=== PATIENT | female | born 1995 | race Caucasian/White ===

== ENCOUNTER 2018-05-19 00:55 | Outpatient (CLI) | payer OTHER | END 2018-05-19 00:56 | disposition EMS.NT | LOC: EMS 00:55 | PROVIDERS: ATTEND Surgery | DX: R20.2 Paresthesia of skin (principal) ==

== ENCOUNTER 2018-05-19 01:36 | Emergency (ER) | payer OTHER ==
[2018-05-19 01:45] VITALS: BP 118/74
--- NOTE | 2018-05-19 01:45 | ED Physician Documentation ---
PD HPI DYSPNEA - Stated complaint Stated Complaint: ALLERGIC REACTION/SOA - History obtained from History obtained from: Patient - History of Present Illness Timing - onset: How many hours ago (1.5), Today Timing - onset during: Light activity (she put on some lipstick and had abrupt onset of swelling/burning/discomfort of the lips. Says some feeling of swelling inner lips too. No swelling of tongue nor throat. 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 denies: Cough GI: denies: Nausea, Vomiting Neurologic: denies: Near syncope, Altered mental status, Headache PD PAST MEDICAL HISTORY - Past Medical History Cardiovascular: None Respiratory: None Neuro: None Endocrine/Autoimmune: None - Present Medications Home Medications: Ambulatory Orders Medication Instructions Recorded Confirmed Cetirizine [ZyrTEC] 10 mg PO DAILY #15 tablet 05/19/18 Dexamethasone [Decadron] 4 mg PO DAILY #5 tablet 05/19/18 diphenhydrAMINE [Benadryl] 25 mg PO Q4-6H PRN #20 capsule 05/19/18 - Allergies Allergies/Adverse Reactions: Allergies Allergy/AdvReac Type Severity Reaction Status Date / Time olive oil Allergy Hives Verified 05/19/18 01:45 - Living Situation Living Situation: reports: With spouse/s.o. Living Arrangement: reports: At home - Social History Does the pt drink ETOH?: No Does the pt have substance abuse?: No - Family History Family history: reports: Non contributory PD ED PE NORMAL - Vitals Vital signs reviewed: Yes - General General: Alert and oriented X 3, No acute distress, Well developed/nourished - HEENT HEENT: Ears normal, Moist mucous membranes, Pharynx benign, Other (lips with uniform swelling and are pinker colored than usual. No blistering. ) - Neck Neck: Supple, no meningeal sign, No adenopathy - Cardiac Cardiac: RRR, No murmur - Respiratory Respiratory: Clear bilaterally - Derm Derm: Normal color, Warm and dry - Neuro Neuro: Alert and oriented X 3, No motor deficit, Normal speech Results - Vitals Vitals: Vital Signs - 24 hr 05/19/18 01:43 Temperature 36.8 C Heart Rate 71 Respiratory 17 Rate Blood Pressure 118/74 O2 Saturation 99 Oxygen O2 Source Room air Departure - Departure Disposition: 01 Home, Self Care Clinical Impression: Contact allergic reaction Condition: Stable Record reviewed to determine appropriate education?: Yes Instructions: ED Allergic Reaction Local Other Prescriptions: Cetirizine [ZyrTEC] 10 mg PO DAILY #15 tablet Dexamethasone [Decadron] 4 mg PO DAILY #5 tablet diphenhydrAMINE [Benadryl] 25 mg PO Q4-6H PRN #20 capsule PRN Reason: Allergy Symptoms Comments: Drink lots of fluids. Benadryl every 6 hours if needed for itchiness and swelling. Use Decadron steroid for the next several days until the swelling and symptoms seem completely resolved. Cetirizine long-acting antihistamine daily for a week or so. Recheck if not fully improved over the next day or 2 and return sooner if worsening symptoms. Add Tylenol if needed for headache and pains. Discharge Date/Time: 05/19/18 02:13
[2018-05-19] MEDS ORDERED: ONDANSETRON ODT 4 MG TABLET TL STA (01:55)
[2018-05-19] MEDS ORDERED: diphenhydrAMINE 25 MG CAPSULE PO STA (01:55)
[2018-05-19] MEDS ORDERED: DEXAMETHASONE 10 MG/ML VIAL PO STA (01:55)
[2018-05-19] MEDS ORDERED: NAPROXEN 250 MG TABLET PO STA (01:55)
== END 2018-05-19 02:13 | disposition home or self-care (01) ==
LOC: ED 01:36
DX: L23.2 Allergic contact dermatitis due to cosmetics (principal); R22.9 Localized swelling, mass and lump, unspecified
CPT/HCPCS: 99283; A9270; Q0162

== ENCOUNTER 2018-05-22 17:59 | Emergency (ER) | payer OTHER ==
[2018-05-22] MEDS ORDERED: LOPERAMIDE 2 MG CAPSULE PO STA (18:11)
[2018-05-22] MEDS ORDERED: KETOROLAC 15 MG/ML VIAL IVP STA (18:11)
[2018-05-22] MEDS ORDERED: SODIUM CHLORIDE 0.9% 1,000 ML IV ONE (18:11)
[2018-05-22] MEDS ORDERED: ONDANSETRON 4 MG/2 ML VIAL IVP STA (18:11)
--- NOTE | 2018-05-22 18:13 | ED Physician Documentation ---
PD HPI ABD PAIN - Stated complaint Stated Complaint: N/V/D/PASSED OUT - Chief complaint Chief Complaint: Abd Pain - History obtained from History obtained from: Patient - History of Present Illness Timing - onset: Today (Fairly abruptly today she developed central and lower abdominal pain as well as vomiting and diarrhea. She got up and felt dizzy and fell down without full syncope. She was exposed to somebody with a GI illness a few days ago. No fevers. She doubts the possibility of as she is in a monogamous homosexual relationship.) Review of Systems Constitutional: reports: Chills, Sweats. denies: Fever Cardiac: denies: Chest pain / pressure, Palpitations Respiratory: denies: Dyspnea, Cough GI: reports: Abdominal Pain, Nausea, Vomiting, Diarrhea. denies: Constipation, Hematemesis, Bloody / black stool : reports: LMP (05/13). denies: Now EGA Musculoskeletal: denies: Neck pain, Back pain PD PAST MEDICAL HISTORY - Past Medical History Cardiovascular: None Respiratory: None Neuro: None Endocrine/Autoimmune: None - Past Surgical History Past Surgical History: No - Present Medications Home Medications: Ambulatory Orders Medication Instructions Recorded Confirmed Cetirizine [ZyrTEC] 10 mg PO DAILY #15 tablet 05/19/18 Dexamethasone [Decadron] 4 mg PO DAILY #5 tablet 05/19/18 diphenhydrAMINE [Benadryl] 25 mg PO Q4-6H PRN #20 capsule 05/19/18 Ondansetron Odt [Zofran] 4 mg TL Q6H PRN #10 tablet 05/22/18 - Allergies Allergies/Adverse Reactions: Allergies Allergy/AdvReac Type Severity Reaction Status Date / Time olive oil Allergy Hives Verified 05/22/18 18:06 - Social History Does the pt smoke?: No Smoking Status: Never smoker Does the pt drink ETOH?: No Does the pt have substance abuse?: No - POLST Patient has POLST: No PD ED PE NORMAL - Vitals Vital signs reviewed: Yes - General General: Alert and oriented X 3, No acute distress - HEENT HEENT: Pharynx benign - Neck Neck: Supple, no meningeal sign, No bony TTP - Cardiac Cardiac: RRR, No murmur - Respiratory Respiratory: No respiratory distress, Clear bilaterally - Abdomen Abdomen: Normal bowel sounds, Soft, Non tender - Back Back: No CVA TTP, No spinal TTP - Derm Derm: Normal color, Warm and dry - Extremities Extremities: No edema, No calf tenderness / cord - Neuro Neuro: Alert and oriented X 3 - Psych Psych: Normal mood, Normal affect Results - Vitals Vitals: Vital Signs - 24 hr 05/22/18 18:00 Temperature 36 C L Heart Rate 74 Respiratory 16 Rate Blood Pressure 122/74 O2 Saturation 97 Oxygen O2 Source Room air - Labs Labs: Laboratory Tests 05/22/18 05/22/18 05/22/18 18:48 18:48 19:15 WBC 7.7 RBC 4.97 Hgb 12.5 Hct 39.5 MCV 79.5 L MCH 25.2 L MCHC 31.7 L RDW 15.7 H Plt Count 344 MPV 7.6 L Neut # (Auto) 5.0 Lymph # (Auto) 1.8 [place] # (Auto) 0.6 Eos # (Auto) 0.2 Baso # (Auto) 0.1 Absolute Nucleated RBC 0.01 Nucleated RBC % 0.1 Sodium 136 Potassium 3.8 Chloride 102 Carbon Dioxide 26 Anion Gap 8.0 BUN 15 Creatinine 0.7 Estimated GFR (MDRD) 107 Glucose 102 H Calcium 9.4 Total Bilirubin 0.4 AST 22 ALT 20 Alkaline Phosphatase 67 Total Protein 8.0 Albumin 4.7 Globulin 3.3 Albumin/Globulin Ratio 1.4 Lipase 40 Urine Color YELLOW Urine Clarity CLEAR Urine pH 7.0 Ur Specific [place] 1.015 Urine Protein NEGATIVE Urine Glucose (UA) NEGATIVE Urine Ketones NEGATIVE Urine Occult Blood NEGATIVE Urine Nitrite NEGATIVE Urine Bilirubin NEGATIVE Urine Urobilinogen 0.2 (NORMAL) Ur Leukocyte Esterase SMALL H Urine RBC 0-5 Urine WBC 6-10 H Ur Squamous Epith Cells FEW Squamous Urine Bacteria Rare Ur Microscopic Review INDICATED Urine Culture Comments INDICATED Urine HCG, Qual NEGATIVE PD MEDICAL DECISION MAKING - ED course ED course: This is a 22-year-old woman who was exposed to what sounds like gastroenteritis by an acquaintance few days ago but now has vomiting, diarrhea, lightheadedness, and abdominal pain with a benign examination and benign vitals. She was administered IV fluids, Zofran and Imodium with good relief of those symptoms but did have some vertigo which was treated with meclizine. She remained otherwise asymptomatic and passed an oral challenge. She was given appendicitis precautions but I suspect this is very unlikely at this juncture. Departure - Departure Disposition: 01 Home, Self Care Clinical Impression: Gastroenteritis Condition: Good Record reviewed to determine appropriate education?: Yes Instructions: ED Gastroenteritis Viral Prescriptions: Ondansetron Odt [Zofran] 4 mg TL Q6H PRN #10 tablet PRN Reason: Nausea / Vomiting Comments: Wash your hands well. Return if you develop a fever, right lower quadrant pain as discussed where I showed you. Also return if not better in 12-18 hours. You can use imodium available [id number] as needed for diarrhea.
[2018-05-22 19:08] LABS: BASOPHILS # (AUTO) 0.1 10^3/uL (0.0-0.1); BASOPHILS % (AUTO) 0.8 %; EOSINOPHILS # (AUTO) 0.2 10^3/uL (0.0-0.7); EOSINOPHILS % (AUTO) 2.3 %; HGB - HEMOGLOBIN 12.5 g/dL (12.0-16.0); LYMPHOCYTES # (AUTO) 1.8 10^3/uL (1.5-3.5); LYMPHOCYTES % (AUTO) 23.9 %; MEAN CORPUSCULAR HEMOGLOBIN 25.2 pg (27.0-31.0); MEAN CORPUSCULAR HGB CONC 31.7 g/dL (32.0-36.0); MEAN CORPUSCULAR VOLUME 79.5 fL (81.0-99.0); MEAN PLATELET VOLUME 7.6 fL (7.9-10.8); MONOCYTES # (AUTO) 0.6 10^3/uL (0.0-1.0); PLT - PLATELET COUNT 344 10^3/uL (130-450); RED BLOOD COUNT 4.97 10^6/uL (4.20-5.40); RED CELL DISTRIBUTION WIDTH 15.7 % (12.0-15.0); WHITE BLOOD COUNT 7.7 x10^3/uL (4.8-10.8)
[2018-05-22 19:16] LABS: ALBUMIN 4.7 g/dL (3.2-5.5); ALBUMIN/GLOBULIN RATIO 1.4 (1.0-2.2); BILIRUBIN,TOTAL 0.4 mg/dL (0.2-1.0); CALCIUM 9.4 mg/dL (8.5-10.3); CREATININE 0.7 mg/dL (0.4-1.0)
[2018-05-22 19:26] LABS: BILIRUBIN,URINE NEGATIVE (NEGATIVE); GLUCOSE, URINE (UA) NEGATIVE (NEGATIVE); KETONES,URINE (UA) NEGATIVE (NEGATIVE); LEUKOCYTE ESTERASE, URINE SMALL (NEGATIVE); NITRITE,URINE NEGATIVE (NEGATIVE); OCCULT BLOOD,URINE NEGATIVE (NEGATIVE); PROTEIN,URINE NEGATIVE (NEGATIVE); UROBILINOGEN,URINE 0.2 (NORMAL) E.U./dL (NORMAL)
[2018-05-22 19:28] LABS: CLARITY,URINE CLEAR (CLEAR); HCG UR QUAL NEGATIVE
[2018-05-22] MEDS ORDERED: MECLIZINE 12.5 MG TABLET PO STA (19:37)
[2018-05-22 19:41] LABS: BACTERIA,URINE Rare /HPF (None Seen); RBC,URINE 0-5 /HPF (0-5); SQUAMOUS EPITHELIAL CELL,UR FEW Squamous (<= Few)
[2018-05-22] MEDS ORDERED: ONDANSETRON ODT 4 MG Prepack 2 TL STA (20:15)
[2018-05-22 20:22] VITALS: BP 116/71
== END 2018-05-22 20:24 | disposition home or self-care (01) ==
LOC: ED 17:59
DX: K52.9 Noninfective gastroenteritis and colitis, unspecified (principal)
CPT/HCPCS: 36415; 80053; 81001; 81025; 83690; 85025; 87086; 96361; 96374; 96375; 99283; A9270; 81003

== ENCOUNTER 2018-10-17 17:06 | Emergency (ER) | payer OTHER ==
--- NOTE | 2018-10-17 18:26 | ED Physician Documentation ---
PD HPI CHEST PAIN - Stated complaint Stated Complaint: SOA/CHEST PRESSURE - Chief complaint Chief Complaint: Resp - History obtained from History obtained from: Patient - History of Present Illness Timing - onset: How many days ago (2) Timing - duration: Days (2) Timing - details: Gradual onset Pain level now: 6 Quality: Sharp Location: Substernal Worsened by: Other Associated symptoms: No: Shortness of air, Diaphoresis, Nausea, Vomiting Recently seen: Not recently seen - Additional information Additional information: This is a 22-year-old who presents with her significant other and friend complaints that she is been sick for couple days she feels short of breath and it hurts to breathe just underneath her sternum. Her throat feels swollen she has not been exposed to strep. She rates her pain at a 6 out of 10. She is had subjective fevers with chills. Denies stuffy nose. She is bringing up a little bit of phlegm when she coughs but she does not look at it. She has been feeling like her heart has skipped a few beats. She is tried DayQuil Tylenol and cough drops without relief of her symptoms. Denies history of asthma but is a smoker. She is not currently employed. Review of Systems Constitutional: reports: Fever (Subjective), Chills Ears: denies: Ear pain Nose: denies: Congestion Throat: reports: Sore throat Cardiac: reports: Chest pain / pressure. denies: Palpitations Respiratory: reports: Dyspnea, Cough. denies: Wheezing GI: denies: Nausea, Vomiting : reports: Other (Denies ) PD PAST MEDICAL HISTORY - Past Medical History Cardiovascular: None Respiratory: None Neuro: None Endocrine/Autoimmune: None GI: None REST ROOM ATTENDANT: None : None HEENT: None Psych: None Musculoskeletal: None Derm: None - Past Surgical History Past Surgical History: No - Present Medications Home Medications: Ambulatory Orders Medication Instructions Recorded Confirmed RX: Ibuprofen 600 mg PO TID PRN #30 tablet 10/17/18 guaiFENesin/CODEINE [Robitussin AC] 5 ml PO Q6H PRN #120 ml 10/17/18 - Allergies Allergies/Adverse Reactions: Allergies Allergy/AdvReac Type Severity Reaction Status Date / Time olive oil Allergy Hives Verified 10/17/18 17:13 - Social History Does the pt smoke?: No Smoking Status: Never smoker Does the pt drink ETOH?: No ETOH Use: Beer Does the pt have substance abuse?: No - Immunizations Immunizations are current?: Yes - POLST Patient has POLST: No PD ED PE NORMAL - Vitals Vital signs reviewed: Yes - General General: Alert and oriented X 3, No acute distress, Well developed/nourished - HEENT HEENT: Atraumatic, PERRL, EOMI, Ears normal, Moist mucous membranes, Other (There is erythema in the tonsillar pillars bilaterally no exudate.) - Neck Neck: Supple, no meningeal sign, No adenopathy - Cardiac Cardiac: RRR, No murmur - Respiratory Respiratory: No respiratory distress, Clear bilaterally - Abdomen Abdomen: Soft - Neuro Neuro: Alert and oriented X 3 - Psych Psych: Normal mood, Normal affect Results - Vitals Vitals: Vital Signs - 24 hr 10/17/18 10/17/18 17:09 19:34 Temperature 37 C 36.7 C Heart Rate 82 68 Respiratory 16 15 Rate Blood Pressure 127/77 114/74 O2 Saturation 98 99 Oxygen O2 Source Room air - Labs Labs: Laboratory Tests 10/17/18 18:34 Group A Strep Rapid Negative PD MEDICAL DECISION MAKING - ED course Complexity details: re-evaluated patient, d/w patient, d/w family ED course: Strep screen is negative. The patient's chest x-ray is clear. Results were discussed with her. She will be treated symptomatically with Robitussin with codeine cough medication and ibuprofen. Follow-up with her primary care provider if her symptoms are not improving. Departure - Departure Disposition: 01 Home, Self Care Clinical Impression: Bronchitis Condition: Good Instructions: ED Upper Resp Infec No Abx Tx Follow-Up: David Pool ARNP [Primary Care Provider] - Prescriptions: guaiFENesin/CODEINE [Robitussin AC] 5 ml PO Q6H PRN #120 ml PRN Reason: Cough RX: Ibuprofen 600 mg PO TID PRN #30 tablet PRN Reason: Pain Comments: Take the Motrin every 8 hours with food as needed for pain. Salt water gargles may help the throat. Robitussin with codeine if needed for coughing and to help you sleep. Do not drive or operate machinery if you are using the codeine. Follow-up with your primary care provider if your symptoms are not improving ov er another 5 to 7 days or if things are worsening with increasing shortness of breath, increasing pain, vomiting or other problems arise. Discharge Date/Time: 10/17/18 19:53
--- NOTE | 2018-10-17 19:05 | XRAY Report ---
Reason: cough Procedure Date: 10/17/2018 Accession Number: [id number] / [id number] Procedure: XR - Chest 2 View X-Ray CPT Code: 05677 FULL RESULT: EXAM: CHEST RADIOGRAPHY EXAM DATE: 10/17/2018 06:40 PM. CLINICAL HISTORY: Cough. COMPARISON: None. TECHNIQUE: 2 views. FINDINGS: Lungs/Pleura: No focal opacities evident. No pleural effusion. No pneumothorax. Normal volumes. Mediastinum: Heart and mediastinal contours are normal. Other: None. IMPRESSION: No acute cardiopulmonary abnormality. RADIA
[2018-10-17 19:35] VITALS: BP 114/74
== END 2018-10-17 19:53 | disposition home or self-care (01) ==
LOC: ED 17:06
DX: J40 Bronchitis, not specified as acute or chronic (principal)
CPT/HCPCS: 71046; 87070; 87430; 99283

== ENCOUNTER 2018-11-22 10:40 | Emergency (ER) | payer OTHER ==
[2018-11-22] MEDS ORDERED: AMOX/CLAV 875 MG/125 MG TABLET PO STA (12:24)
[2018-11-22] MEDS ORDERED: HYDROcod/ACETAM 5/325 MG TABLET PO STA (12:24)
--- NOTE | 2018-11-22 12:26 | ED Physician Documentation ---
PD HPI HEENT - Stated complaint Stated Complaint: HEADACHE/EAR PX - Chief complaint Chief Complaint: Heent - History obtained from History obtained from: Patient - History of Present Illness Timing - onset: Yesterday (Cough and cold for a week with a fever a few days ago now gone. Severe right ear pain that is worsening since yesterday with muffled hearing but no drainage.) Review of Systems Constitutional: denies: Fever, Chills Ears: reports: Loss of hearing, Ear pain. denies: Drainage/discharge Nose: reports: Rhinorrhea / runny nose. denies: Sinus pressure / pain Throat: denies: Sore throat PD PAST MEDICAL HISTORY - Past Medical History Cardiovascular: None Respiratory: None Neuro: None Endocrine/Autoimmune: None GI: None COMPUTER HARDWARE ENGINEER: None : None HEENT: None Psych: None Musculoskeletal: None Derm: None - Past Surgical History Past Surgical History: No - Present Medications Home Medications: Ambulatory Orders Medication Instructions Recorded Confirmed Amox/Clav 875/125 [Augmentin] 1 each PO Q12H #20 tablet 11/22/18 Hydrocodone/Acetaminophen 1 - 2 each PO Q6H PRN #14 tablet 11/22/18 [Hydrocodon-Acetaminophen 5-325] - Allergies Allergies/Adverse Reactions: Allergies Allergy/AdvReac Type Severity Reaction Status Date / Time olive oil Allergy Hives Verified 11/22/18 10:48 - Social History Does the pt smoke?: No Smoking Status: Never smoker Does the pt drink ETOH?: No Does the pt have substance abuse?: No - Immunizations Immunizations are current?: Yes - POLST Patient has POLST: No PD ED PE NORMAL - Vitals Vital signs reviewed: Yes - General General: Alert and oriented X 3, Other (uncomfortable) - HEENT HEENT: PERRL, EOMI, Other (Left TM normal, severe right otitis media, bulging enough to suggest impending rupture.) - Neck Neck: Supple, no meningeal sign, No bony TTP - Neuro Neuro: Alert and oriented X 3, pad extractor tender 2-12 intact - Psych Psych: Normal mood, Normal affect Results - Vitals Vitals: Vital Signs - 24 hr 11/22/18 10:45 Temperature 36.1 C L Heart Rate 59 L Respiratory 16 Rate Blood Pressure 103/66 O2 Saturation 97 Oxygen O2 Source Room air Departure - Departure Disposition: 01 Home, Self Care Clinical Impression: ROM (right otitis media) Qualifiers: Otitis media type: suppurative Chronicity: acute Recurrence: non-recurrent Spontaneous tympanic membrane rupture: without spontaneous rupture Qualified Code(s): H66.001 - Acute suppurative otitis media without spontaneous rupture of ear drum, right ear Condition: Good Record reviewed to determine appropriate education?: Yes Health Concerns: Right ear pain Plan of Treatment: Severe right otitis media, possibility of impending rupture. Will place on antibiotics and painkillers. Follow-up with your doctor in 1 week. Return for new worsening symptoms. Do not drink or drive while taking narcotic pain medication. Note that many narcotic pain relievers also contain Tylenol/acetaminophen. Please ensure that your total dose of acetaminophen from all sources does not exceed 3 g (3000 mg) per day. You may get constipated while on this medication. Take a stool softener such as Colace twice a day while you are on it. Also add an [id number]-eqjblld laxative such as senna or MiraLAX on any day that you do not have a bowel movement. If you received a narcotic pain medication or sedative while in the emergency department, do not drive for the next 24 hours. Care Goals: improve pain, hearing Assessment: as above Instructions: ED Otitis Media Acute Adult Prescriptions: Amox/Clav 875/125 [Augmentin] 1 each PO Q12H #20 tablet Hydrocodone/Acetaminophen [Hydrocodon-Acetaminophen 5-325] 1 - 2 each PO Q6H PRN #14 tablet PRN Reason: pain
[2018-11-22 12:32] VITALS: BP 102/68
== END 2018-11-22 12:31 | disposition home or self-care (01) ==
LOC: ED 10:40
DX: H66.001 Acute suppurative otitis media without spontaneous rupture of ear drum, right ear (principal)
CPT/HCPCS: 99283; A9270

== ENCOUNTER 2019-01-16 05:52 | Day surgery (SDC) | payer OTHER ==
[2019-01-16] MEDS ORDERED: DEXAMETHASONE 4 MG/ML VIAL IVP ONE (05:53)
[2019-01-16] MEDS ORDERED: NEOSTIGMINE 0.5 MG/1 ML 10 ML MDV IVP ONE (05:53)
[2019-01-16] MEDS ORDERED: PROPOFOL 200 MG/20 ML VIAL IVP ONE (05:53)
[2019-01-16] MEDS ORDERED: MIDAZOLAM 2 MG/2 ML VIAL IVP ONE (05:53)
[2019-01-16] MEDS ORDERED: GLYCOPYRROLATE 1 MG/5 ML VIAL IVP ONE (05:53)
[2019-01-16] MEDS ORDERED: KETOROLAC 30 MG/ML VIAL IVP ONE (05:53)
[2019-01-16 06:28] LABS: HCG UR QUAL NEGATIVE
[2019-01-16] MEDS ORDERED: LACTATED RINGERS 1,000 ML IV ONE ×2 (06:33→09:47)
--- NOTE | 2019-01-16 07:14 | ANESTHESIA ---
Pre-Anesthesia VS, & Labs - Diagnosis chronic pelvic pain - Procedure diagnostic laparoscopy Vital Signs: Temp Pulse Resp BP Pulse Ox 36 C L 73 20 110/73 98 01/16/19 06:15 01/16/19 06:15 01/16/19 06:15 01/16/19 06:15 01/16/19 06:15 Height 5 ft 6.14 in Weight (kg) 65.3 kg Body Mass Index 23.1 - NPO >8 hours - Is Patient ?: No - Lab Results Lab results reviewed: Yes Home Medications and Allergies Home Medications: Ambulatory Orders Naproxen [Naprosyn] 250 mg PO Q8H 01/06/19 Quetiapine Fumarate [Seroquel] 50 mg PO 01/06/19 Naproxen [Naprosyn] 250 mg PO Q8H 01/06/19 Quetiapine Fumarate [Seroquel] 50 mg PO 01/06/19 Allergies/Adverse Reactions: Allergies Allergy/AdvReac Type Severity Reaction Status Date / Time olive oil Allergy Hives Verified 01/06/19 15:35 Anes History & Medical History - Anesthetic History Anesthesia Complications: reports: No previous complications (wisdom teeth extraction, D&C) Family history of Anesthesia Complications: Denies Family history of Malignant Hyperthermia: Denies - Medical History Cardiovascular: reports: None Pulmonary: reports: None Gastrointestinal: reports: None Urinary: reports: None Neuro: reports: None Musculoskeletal: reports: None Endocrine/Autoimmune: reports: None Blood Disorders: reports: Anemia Skin: reports: None Smoking Status: Never smoker - Surgical History Gynecologic: Dilation and currettage Exam General: Alert Dental: WNL Mouth Openin Fingerbreadth Neck Mobility: Normal Mallampati classification: II Thyromental Distance: 4-6 cm Respiratory: Lungs clear, Normal breath sounds Cardiovascular: Regular rate Neurological: Normal gait, Normal speech Mental/Cognitive Status: Alert/Oriented X3, Normal for patient Cognitive Status: Within normal limits Plan Anesthesia Type: General Consent for Procedure(s) Verified and Reviewed: Yes Code Status: Attempt Resuscitation ASA classification: 2-Mild systemic disease Is this case an emergency?: No
[2019-01-16] MEDS ORDERED: BUPIVACAINE 0.5% PF 10 ML VIAL ONE (07:23)
[2019-01-16] MEDS ORDERED: SILVER NITRATE APPLICATOR TOP ONE (07:24)
[2019-01-16] MEDS ORDERED: METHYLENE BLUE 0.5% 50 MG/10 ML AMPULE ONE (07:24)
[2019-01-16] MEDS ORDERED: VASOPRESSIN 20 UNIT/ML VIAL ONE ×2 (07:25→07:39)
[2019-01-16] MEDS ORDERED: ACETAMINOPHEN 1,000 MG/100 ML 100 ML IV ONE (07:39)
[2019-01-16] MEDS: LEVONORGESTREL 20 MCG/24H IUD IY ONE ×3 (08:23→08:37)
[2019-01-16] MEDS: LIDOCAINE-MPF 1% 30 ML VIAL ONE ×2 (08:35→08:36)
[2019-01-16] MEDS ORDERED: HYDROcod/ACETAM 10 MG/325 MG TABLET PO PRN (08:57)
--- NOTE | 2019-01-16 09:00 | OPERATIVE REPORT ---
Operative Report - General Procedure Date: 01/16/19 Planned Procedure: Diagnostic laparoscopy Placement of Mirena intrauterine system Pre-Op Diagnosis: Chronic pelvic pain Procedure Performed: Diagnostic laparoscopy Fulguration of endometriosis Placement of Mirena intrauterine system Post Op Diagnosis: Endometriosis - Procedure Note Primary Surgeon: Rob Anesthesia Provider: Delroy Anesthesia Technique: General ET tube IV Fluids (mL): 450 Estimated Blood Loss (mL): 5 Indications: Chronic pelvic pain Findings: Exam under anesthesia The uterus was of normal size, shape, and consistency. The adnexa were benign. Exam under anesthesia The uterus was anteverted, and of normal size and shape. The tubes and ovaries were normal. There were powder mohan in the anterior and posterior cul-de-sacs and in the left ovarian fossa. The right ovarian fossa was clear. The appendix and the liver edge and gallbladder appeared normal. Complications: None - Other Other Information/Narrative: The patient was taken to the operating room, where general endotracheal anesthesia was administered without difficulty. She was then positioned in the low dorsal lithotomy position with her lower extremities in [place] stirrups. Vagina, perineum, and abdomen were then prepped and draped in a sterile fashion. Procedure Time-Out was then performed. An exam under anesthesia was performed. A sterile bivalve speculum was then inserted into the vagina. The anterior lip of the cervix was grasped with a single-tooth tenaculum, then the cervix was grasped with a Hulka tenaculum. The speculum was then removed, and attention was turned to the laparoscopy. 0.5% Marcaine was injected infraumbilically, then a 7-mm horizontal skin incision made. A Verres needle was then inserted through the anterior layers of the abdominal wall with saline drop test suggesting intraperitoneal placement. Carbon dioxide gas insufflation was then performed with appropriate opening pressures noted. Once 2 L of gas was instilled, a 0-degree, 5 mm laparoscope was inserted into a 5 mm trocar and passed through the anterior layers of the abdominal wall using Optiview technique. The abdomen was visualized, then a right lower quadrant port was placed, first instilling local anesthetic, then placing the ports under direct visualization with the laparoscope. The L hook was used to coagulate the endometriotic implants which were previously noted. The abdomen was then irrigated and desufflated to the extent possible. The ports were removed under direct visualization and the port sites closed with 4-0 Monocryl subcutaneous sutures and covered with Dermabond. Attention was returned to the vagina where the Hulka tenaculum was removed and a paracervical block with 20 cc of 1% lidocaine was given. A Mirena intrauterine system was placed without difficulty and the strings shortened to 3 cm. The patient was then awakened and taken to the recovery room in stable condition.
[2019-01-16] MEDS: fentaNYL 100 MCG/2 ML VIAL ONE ×2 (09:28→09:33)
[2019-01-16] MEDS ORDERED: ONDANSETRON 4 MG/2 ML VIAL ONE (09:46)
[2019-01-16 11:05] VITALS: BP 111/75
[2019-01-16] MEDS ORDERED: HYDROcod/ACETAM 10 MG/325 MG TABLET ONE (11:16)
== END 2019-01-16 05:53 | disposition home or self-care (01) ==
LOC: SDS 05:52
PROVIDERS: ATTEND Obstetrics & Gynecology
PROC: 0U5F4ZZ Destruction of Cul-de-sac, Percutaneous Endoscopic Approach (ICD-10-PCS; 2019-01-16)
PROC: 0UH97HZ Insertion of Contraceptive Device into Uterus, Via Natural or Artificial Opening (ICD-10-PCS; principal; 2019-01-16 07:30)
DX: N80.3 Endometriosis of pelvic peritoneum (principal); Z30.430 Encounter for insertion of intrauterine contraceptive device; E07.9 Disorder of thyroid, unspecified; F17.290 Nicotine dependence, other tobacco product, uncomplicated; Z79.1 Long term (current) use of non-steroidal anti-inflammatories (NSAID); Z62.810 Personal history of physical and sexual abuse in childhood
CPT/HCPCS: 58300; 58662; 81025; A9270; J0131; J7120; J7298

== ENCOUNTER 2019-02-04 22:44 | Outpatient (CLI) | payer OTHER | END 2019-02-04 22:45 | disposition EMS.NT | LOC: EMS 22:44 | PROVIDERS: ATTEND Surgery | DX: R45.851 Suicidal ideations (principal) ==

== ENCOUNTER 2019-02-04 23:37 | Emergency (ER) | payer OTHER ==
[2019-02-04 23:49] VITALS: BP 119/74
--- NOTE | 2019-02-05 00:34 | ED Physician Documentation ---
PD HPI MHE - Stated complaint Stated Complaint: SI - Chief complaint Chief Complaint: MHE - History obtained from History obtained from: Patient - History of Present Illness Primary symptom: Self harm - cut, Depression Timing - onset: Today () Contributing factors: Family Recently seen: Not recently seen - Additional information Additional information: had verbal argument with alen, which led patient to feeling worthless and depressed. She self-inflicted cutting atwood to her right FA using a clothing pin; she has h/o cutting behavior, but hadn't done this in nearly a year. She then felt guilty and more upset when she realized she had resorted to cutting herself; she says she knows of several other means of coping with these situations and feels guilt and is upset with herself for not using a better, more productive coping skill aside from cutting. She says she briefly had suicidal thoughts earlier tonight but without specific plan and she says she feels no serious intent with these thoughts. She says she has many reasons she would not act on suicidal thoughts, such as having friends and family that she loves and love her and she would not want them to deal with the emotional consequences of her committing suicide. Review of Systems Skin: reports: Abrasion (s) Musculoskeletal: reports: Extremity pain (mild burning left forearm at site of abrasions) Neurologic: denies: Focal weakness, Numbness Psychiatric: reports: Depressed. denies: Suicidal, Homicidal, Hallucinations, Delusions PD PAST MEDICAL HISTORY - Past Medical History Cardiovascular: None Respiratory: None Neuro: None Endocrine/Autoimmune: None GI: None DONATION SPECIALIST: None : None HEENT: None Psych: Depression, Anxiety Musculoskeletal: None Derm: None - Past Surgical History Past Surgical History: No /DONATION SPECIALIST: Dilation and currettage - Present Medications Home Medications: Ambulatory Orders Medication Instructions Recorded Confirmed Naproxen [Naprosyn] 250 mg PO Q8H 01/06/19 01/16/19 Quetiapine Fumarate [Seroquel] 50 mg PO 01/06/19 - Allergies Allergies/Adverse Reactions: Allergies Allergy/AdvReac Type Severity Reaction Status Date / Time olive oil Allergy Hives Verified 01/06/19 15:35 - Social History Does the pt smoke?: No Smoking Status: Never smoker Does the pt drink ETOH?: No Does the pt have substance abuse?: No - Immunizations Immunizations are current?: Yes - POLST Patient has POLST: No PD ED PE NORMAL - Vitals Vital signs reviewed: Yes - General General: Alert and oriented X 3, No acute distress, Well developed/nourished - Cardiac Cardiac: RRR, No murmur - Respiratory Respiratory: No respiratory distress, Clear bilaterally - Extremities Extremities: No edema - Neuro Neuro: No motor deficit, No sensory deficit - Psych Psych: Normal mood, Normal affect PD ED PE EXPANDED - Extremities Extremities: Other (multiple linear superficial abrasions to right forearm, ventral surface) Results - Vitals Vitals: Oxygen O2 Source Room air PD MEDICAL DECISION MAKING - ED course Complexity details: considered differential, d/w patient ED course: patient is able to contract for safety and is comfortable going home. She declines telepsych, she declines social work consult in AM. Departure - Departure Disposition: 01 Home, Self Care Clinical Impression: Depression, Self-cutting of wrist Condition: Good Instructions: ED Abrasion, ED Depression Follow-Up: David Pool ARNP [Primary Care Provider] - Discharge Date/Time: 02/05/19 01:09
[2019-02-05] MEDS ORDERED: BACITRACIN ZINC OINT 14 GM TOP STA (01:00)
[2019-02-05] MEDS ORDERED: BACITRACIN ZINC OINT 14 GM TOP ONE (01:12)
== END 2019-02-05 01:09 | disposition home or self-care (01) ==
LOC: EDUNIT# → ED 23:37
DX: F32.9 Major depressive disorder, single episode, unspecified (principal); R45.851 Suicidal ideations; S50.811A Abrasion of right forearm, initial encounter; X78.9XXA Intentional self-harm by unspecified sharp object, initial encounter
CPT/HCPCS: 99283; 99284; A9270

== ENCOUNTER 2019-02-11 01:59 | Emergency (ER) | payer OTHER ==
[2019-02-11 02:22] LABS: MUDS CUTOFF CONCENTRATIONS CUTOFF CONC BELOW:
[2019-02-11 02:25] LABS: BILIRUBIN,URINE NEGATIVE (NEGATIVE); GLUCOSE, URINE (UA) NEGATIVE (NEGATIVE); KETONES,URINE (UA) NEGATIVE (NEGATIVE); LEUKOCYTE ESTERASE, URINE TRACE (NEGATIVE); NITRITE,URINE NEGATIVE (NEGATIVE); OCCULT BLOOD,URINE MODERATE (NEGATIVE); PROTEIN,URINE NEGATIVE (NEGATIVE); UROBILINOGEN,URINE 0.2 (NORMAL) E.U./dL (NORMAL)
[2019-02-11 02:26] LABS: CLARITY,URINE CLEAR (CLEAR); HCG UR QUAL NEGATIVE
[2019-02-11 02:28] LABS: BASOPHILS # (AUTO) 0.1 10^3/uL (0.0-0.1); BASOPHILS % (AUTO) 0.6 %; EOSINOPHILS # (AUTO) 0.3 10^3/uL (0.0-0.7); EOSINOPHILS % (AUTO) 3.6 %; HGB - HEMOGLOBIN 12.1 g/dL (12.0-16.0); LYMPHOCYTES # (AUTO) 2.7 10^3/uL (1.5-3.5); LYMPHOCYTES % (AUTO) 32.6 %; MEAN CORPUSCULAR HEMOGLOBIN 26.7 pg (27.0-31.0); MEAN CORPUSCULAR HGB CONC 32.1 g/dL (32.0-36.0); MEAN CORPUSCULAR VOLUME 83.2 fL (81.0-99.0); MEAN PLATELET VOLUME 9.4 fL (7.9-10.8); MONOCYTES # (AUTO) 0.7 10^3/uL (0.0-1.0); MONOCYTES % (AUTO) 8.2 %; NEUTROPHILS # (AUTO) 4.5 10^3/uL (1.5-6.6); NEUTROPHILS % (AUTO) 54.6 %; PLT - PLATELET COUNT 307 10^3/uL (130-450); RED BLOOD COUNT 4.53 10^6/uL (4.20-5.40); RED CELL DISTRIBUTION WIDTH 14.4 % (12.0-15.0); WHITE BLOOD COUNT 8.3 x10^3/uL (4.8-10.8)
[2019-02-11 02:32] LABS: AMPHETAMINE SCREEN,URINE NEGATIVE (NEGATIVE); BENZODIAZEPINES SCREEN, URINE NEGATIVE (NEGATIVE); COCAINE SCREEN URINE NEGATIVE (NEGATIVE); METHADONE SCREEN, URINE NEGATIVE (NEGATIVE); METHAMPHETAMINES SCREEN, URINE NEGATIVE (NEGATIVE); OPIATE SCREEN, URINE NEGATIVE (NEGATIVE); TRICYCLIC ANTIDEPRESSANT,URINE POSITIVE (NEGATIVE)
[2019-02-11 02:33] LABS: OXYCODONE SCREEN, URINE NEGATIVE (NEGATIVE); PROPOXYPHENE SCREEN, URINE NEGATIVE (NEGATIVE)
[2019-02-11 02:39] LABS: BACTERIA,URINE Few /HPF (None Seen); RBC,URINE 0-5 /HPF (0-5); SQUAMOUS EPITHELIAL CELL,UR FEW Squamous (<= Few)
[2019-02-11 02:39] LABS: ACETAMINOPHEN < 10 ug/mL (10-30); ALBUMIN 4.4 g/dL (3.2-5.5); ALBUMIN/GLOBULIN RATIO 1.4 (1.0-2.2); ALKALINE PHOSPHATASE 57 IU/L (42-121); ALT ALANINE AMINOTRANSFERASE < 10 IU/L (10-60); AST ASPARTATE AMINOTRANSFERASE 18 IU/L (10-42); BILIRUBIN,TOTAL 0.4 mg/dL (0.2-1.0); BUN - BLOOD UREA NITROGEN 15 mg/dL (6-20); CALCIUM 9.2 mg/dL (8.5-10.3); CARBON DIOXIDE - CO2 23 mmol/L (21-32); CHLORIDE 105 mmol/L (101-111); CREATININE 0.8 mg/dL (0.4-1.0); GFR - MDRD 91 (>89); GLUCOSE 103 mg/dL (70-100); LIPASE 37 U/L (22-51); SALICYLATE < 6.0 mg/dL; SODIUM 137 mmol/L (135-145); TOTAL PROTEIN 7.6 g/dL (6.7-8.2)
--- NOTE | 2019-02-11 04:11 | ED Physician Documentation ---
PD HPI MHE - Stated complaint Stated Complaint: SI - Chief complaint Chief Complaint: MHE - History obtained from History obtained from: Patient, Family - History of Present Illness Primary symptom: Suicidal ideation, Depression Timing - onset: How many weeks ago (1) Pain level max: 0 Pain level now: 0 Contributing factors: Family (states her mother told her she is worthless and will never get better) Similar symptoms before: Diagnosis (depression, SI) Recently seen: Emergency Dept (last week for self harm.) - Additional information Additional information: Patient states that she sees Dr. Pereyra in [place] for psychiatry. She has an appointment on Sunday. She states that she was started on Seroquel and lithium 1 month ago. States that she had been on this as a teenager and it worked well. She states that she feels like she is better than a month ago but is still having thoughts. She is wondering if she needs her medications adjusted sooner. Review of Systems Ten Systems: 10 systems reviewed and negative Constitutional: denies: Fever, Chills Nose: denies: Rhinorrhea / runny nose, Congestion Throat: denies: Sore throat Cardiac: denies: Chest pain / pressure Respiratory: denies: Cough GI: denies: Abdominal Pain, Nausea, Vomiting : denies: Dysuria, Frequency, Hesitancy, Now EGA Skin: denies: Rash Musculoskeletal: denies: Neck pain, Back pain Neurologic: denies: Headache Psychiatric: reports: Depressed, Suicidal (no plan). denies: Hallucinations PD PAST MEDICAL HISTORY - Past Medical History Cardiovascular: None Respiratory: None Neuro: None Endocrine/Autoimmune: None GI: None REGIONAL ADMINISTRATIVE ASSISTANT: None : None HEENT: None Psych: Depression, Anxiety Musculoskeletal: None Derm: None - Past Surgical History Past Surgical History: No /REGIONAL ADMINISTRATIVE ASSISTANT: Dilation and currettage - Present Medications Home Medications: Ambulatory Orders Medication Instructions Recorded Confirmed Naproxen [Naprosyn] 250 mg PO Q8H PRN 01/06/19 01/16/19 Quetiapine Fumarate [Seroquel] 50 mg PO 01/06/19 Force 300 mg PO DAILY 02/11/19 02/11/19 - Allergies Allergies/Adverse Reactions: Allergies Allergy/AdvReac Type Severity Reaction Status Date / Time olive oil Allergy Hives Verified 02/11/19 02:08 - Social History Does the pt smoke?: No Smoking Status: Never smoker Does the pt drink ETOH?: No Does the pt have substance abuse?: No - Immunizations Immunizations are current?: Yes - POLST Patient has POLST: No PD ED PE NORMAL - Vitals Vital signs reviewed: Yes - General General: Alert and oriented X 3, No acute distress, Well developed/nourished - HEENT HEENT: PERRL, Moist mucous membranes - Neck Neck: Supple, no meningeal sign - Cardiac Cardiac: RRR - Respiratory Respiratory: No respiratory distress, Clear bilaterally - Abdomen Abdomen: Soft, Non tender, Non distended - Derm Derm: Warm and dry - Extremities Extremities: No edema - Neuro Neuro: Alert and oriented X 3 - Psych Psych: Normal mood, Normal affect Results - Vitals Vitals: Vital Signs - 24 hr 02/11/19 02:03 Temperature 36.6 C Heart Rate 85 Respiratory 16 Rate Blood Pressure 105/69 O2 Saturation 99 Oxygen O2 Source Room air - Labs Labs: Laboratory Tests 02/11/19 02/11/19 02/11/19 02:10 02:10 02:18 WBC 8.3 RBC 4.53 Hgb 12.1 Hct 37.7 MCV 83.2 MCH 26.7 L MCHC 32.1 RDW 14.4 Plt Count 307 MPV 9.4 Neut # (Auto) 4.5 Lymph # (Auto) 2.7 Pike # (Auto) 0.7 Eos # (Auto) 0.3 Baso # (Auto) 0.1 Absolute Nucleated RBC 0.00 Nucleated RBC % 0.0 Sodium Potassium Chloride Carbon Dioxide Anion Gap BUN Creatinine Estimated GFR (MDRD) Glucose Calcium Total Bilirubin AST ALT Alkaline Phosphatase Total Protein Albumin Globulin Albumin/Globulin Ratio Lipase TSH Urine Color YELLOW Urine Clarity CLEAR Urine pH 7.0 Ur Specific [place] 1.010 Urine Protein NEGATIVE Urine Glucose (UA) NEGATIVE Urine Ketones NEGATIVE Urine Occult Blood MODERATE H Urine Nitrite NEGATIVE Urine Bilirubin NEGATIVE Urine Urobilinogen 0.2 (NORMAL) Ur Leukocyte Esterase TRACE H Urine RBC 0-5 Urine WBC 0-3 Ur Squamous Epith Cells FEW Squamous Urine Bacteria Few Ur Microscopic Review INDICATED Urine Culture Comments INDICATED Urine HCG, Qual NEGATIVE Last Dose Date Last Dose Time Salicylates Urine Opiates Screen NEGATIVE Ur Oxycodone Screen NEGATIVE Urine Methadone Screen NEGATIVE Ur Propoxyphene Screen NEGATIVE Acetaminophen Ur Barbiturates Screen NEGATIVE Ur Tricyclics Screen POSITIVE H Ur Phencyclidine Scrn NEGATIVE Ur Amphetamine Screen NEGATIVE U Methamphetamines Scrn NEGATIVE U Benzodiazepines Scrn NEGATIVE Force Urine Cocaine Screen NEGATIVE U Cannabinoids Screen NEGATIVE Ethyl Alcohol 02/11/19 02/11/19 02/11/19 02:18 02:18 03:30 WBC RBC Hgb Hct MCV MCH MCHC RDW Plt Count MPV Neut # (Auto) Lymph # (Auto) Pike # (Auto) Eos # (Auto) Baso # (Auto) Absolute Nucleated RBC Nucleated RBC % Sodium 137 Potassium 4.0 Chloride 105 Carbon Dioxide 23 Anion Gap 9.0 BUN 15 Creatinine 0.8 Estimated GFR (MDRD) 91 Glucose 103 H Calcium 9.2 Total Bilirubin 0.4 AST 18 ALT < 10 L Alkaline Phosphatase 57 Total Protein 7.6 Albumin 4.4 Globulin 3.2 Albumin/Globulin Ratio 1.4 Lipase 37 TSH 3.85 Urine Color Urine Clarity Urine pH Ur Specific [place] Urine Protein Urine Glucose (UA) Urine Ketones Urine Occult Blood Urine Nitrite Urine Bilirubin Urine Urobilinogen Ur Leukocyte Esterase Urine RBC Urine WBC Ur Squamous Epith Cells Urine Bacteria Ur Microscopic Review Urine Culture Comments Urine HCG, Qual Last Dose Date UNKNOWN Last Dose Time UNKNOWN Salicylates < 6.0 Urine Opiates Screen Ur Oxycodone Screen Urine Methadone Screen Ur Propoxyphene Screen Acetaminophen < 10 L Ur Barbiturates Screen Ur Tricyclics Screen Ur Phencyclidine Scrn Ur Amphetamine Screen U Methamphetamines Scrn U Benzodiazepines Scrn Force 0.56 Urine Cocaine Screen U Cannabinoids Screen Ethyl Alcohol < 5.0 PD MEDICAL DECISION MAKING - ED course Complexity details: reviewed results, re-evaluated patient, considered differential, d/w patient, d/w family ED course: 23-year-old female presents to the emergency department with depression and vague suicidal ideation. No current plan. Tele-psychiatry consult was placed. She is medically clear for psychiatric care. Social work consult also placed. Will await further consultation. Patient signed out to oncoming emergency department physician. She will likely need outpatient counseling in addition to her current psychiatrist. This document was made in part using voice recognition software. While efforts are made to proofread this document, sound alike and grammatical errors may occur. Departure - Departure Clinical Impression: Depression Qualifiers: Depression Type: unspecified Qualified Code(s): F32.9 - Major depressive disorder, single episode, unspecified Condition: Stable
[2019-02-11 04:16] LABS: LITHIUM 0.56 mmol/L
[2019-02-11 07:26] VITALS: BP 101/68
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
--- NOTE | 2019-02-11 11:22 | ED Physician Documentation ---
ED Addendum - Addendum Addendum: 02/11/19 11:21 Patient was evaluated by tele-psych who felt she was safe for discharge and had a safety plan in place with her partner. Social work also talked with them. She has a psychiatric appointment today at 1 as a acute follow-up. She is comfortable heading home.
== END 2019-02-11 11:27 | disposition home or self-care (01) ==
LOC: ED 01:59
DX: F32.9 Major depressive disorder, single episode, unspecified (principal)
CPT/HCPCS: 36415; 80178; 80320; 80329; 81001; 81025; 83690; 87086; 99283; G0427; Q3014; 80053; 80306; 80307; 81003; 84443; 85025

== ENCOUNTER 2019-04-11 02:38 | Outpatient (CLI) | payer OTHER | END 2019-04-11 02:39 | disposition critical access hospital (66) | LOC: EMS 02:38 | PROVIDERS: ATTEND Surgery | DX: R55 Syncope and collapse (principal); R10.10 Upper abdominal pain, unspecified | CPT/HCPCS: A0425; A0429 ==

== ENCOUNTER 2019-04-11 02:57 | Day surgery (SDC) | payer OTHER ==
--- NOTE | 2019-04-11 03:15 | ED Physician Documentation ---
History of Present Illness - Stated complaint Stated Complaint: CONCERNED ABOUT LITHIUM LEVEL - Chief complaint Chief Complaint: General - History obtained from History obtained from: Patient - History of Present Illness Timing: Prior to arrival - Additonal information Additional information: This is a 23-year-old woman who presents with her complaints that she may have had a lithium "overdose". Just prior to arrival she was having stomach pain "below the diaphragm" right in the middle and vomited. She also had some diarrhea. She ate a Portuguese dish of Januvia last night which her significant other did not eat. They became concerned though because the patient is on lithium for bipolar and schizophrenia and the last time she felt this way as she had a toxic lithium level. That was about a year ago she states that she never followed up to have it retested because she started a job and is been too busy. She denies any suicidal intent or intentional overdose. She did feel very hot and sweaty and now feels very weak and "fainted" at home. She denies any coughing, sore throat or stuffiness. Denies any dysuria. The patient has had a exploratory laparotomy diagnostic for endometriosis. She is currently working at a [employer] and takes Seroquel and lithium for her psychiatric diagnoses. Review of Systems Constitutional: denies: Fever Ears: denies: Ear pain Nose: denies: Congestion Throat: denies: Sore throat Cardiac: denies: Chest pain / pressure Respiratory: denies: Cough GI: reports: Abdominal Pain, Nausea, Vomiting, Diarrhea : denies: Dysuria, Now EGA Skin: denies: Rash Musculoskeletal: denies: Neck pain, Back pain Neurologic: reports: Syncope PD PAST MEDICAL HISTORY - Past Medical History Cardiovascular: None Respiratory: None Neuro: None Endocrine/Autoimmune: None GI: None GLAZE CARRIER: None : None HEENT: None Psych: Anxiety, Post traumatic stress disorder Musculoskeletal: None Derm: None - Past Surgical History Past Surgical History: No /GLAZE CARRIER: Dilation and currettage - Present Medications Home Medications: Ambulatory Orders Medication Instructions Recorded Confirmed Naproxen [Naprosyn] 250 mg PO Q8H PRN 01/06/19 01/16/19 Quetiapine Fumarate [Seroquel] 50 mg PO 01/06/19 [place] 300 mg PO DAILY 02/11/19 02/11/19 oxyCODONE [Roxicodone] 5 mg PO Q6H PRN #6 tablet 04/11/19 - Allergies Allergies/Adverse Reactions: Allergies Allergy/AdvReac Type Severity Reaction Status Date / Time olive oil Allergy Hives Verified 04/11/19 03:12 - Social History Does the pt smoke?: No Smoking Status: Never smoker Does the pt drink ETOH?: No Does the pt have substance abuse?: No - Immunizations Immunizations are current?: Yes - POLST Patient has POLST: No PD ED PE NORMAL - Vitals Vital signs reviewed: Yes - General General: Alert and oriented X 3, No acute distress, Well developed/nourished, Other (Patient is very limp lying on the exam table. She is barely whispering to talk.) - HEENT HEENT: Atraumatic, PERRL, EOMI, Moist mucous membranes, Pharynx benign - Neck Neck: Supple, no meningeal sign, No adenopathy - Cardiac Cardiac: RRR, No murmur, Strong equal pulses - Respiratory Respiratory: No respiratory distress, Clear bilaterally - Abdomen Abdomen: Normal bowel sounds, Soft, Non tender, Non distended, No organomegaly - Back Back: No CVA TTP - Derm Derm: Normal color, Warm and dry, No rash - Extremities Extremities: No edema - Neuro Neuro: Alert and oriented X 3, optoelectronics engineer 2-12 intact, No motor deficit, No sensory deficit, Normal speech Results - Vitals Vitals: Oxygen O2 Source Room air - Labs Labs: Laboratory Tests 04/11/19 04/11/19 04/11/19 03:40 03:40 03:40 WBC 18.8 H RBC 4.59 Hgb 11.7 L Hct 39.3 MCV 85.6 MCH 25.5 L MCHC 29.8 L RDW 13.4 Plt Count 316 MPV 9.4 Neut # (Auto) 16.3 H Lymph # (Auto) 1.2 L [place] # (Auto) 1.1 H Eos # (Auto) 0.1 Baso # (Auto) 0.1 Absolute Nucleated RBC 0.00 Nucleated RBC % 0.0 Sodium 139 Potassium 3.9 Chloride 105 Carbon Dioxide 26 Anion Gap 8.0 BUN 18 Creatinine 0.8 Estimated GFR (MDRD) 91 Glucose 106 H Calcium 9.2 Phosphorus 3.4 Magnesium 2.3 Total Bilirubin 0.6 AST 20 ALT 13 Alkaline Phosphatase 54 Total Protein 8.0 Albumin 4.7 Globulin 3.3 Albumin/Globulin Ratio 1.4 Lipase 37 Urine Color Urine Clarity Urine pH Ur Specific [place] Urine Protein Urine Glucose (UA) Urine Ketones Urine Occult Blood Urine Nitrite Urine Bilirubin Urine Urobilinogen Ur Leukocyte Esterase Urine RBC Urine WBC Ur Squamous Epith Cells Urine Bacteria Urine Mucus Ur Microscopic Review Urine Culture Comments Urine HCG, Qual Last Dose Date UNKNOWN Last Dose Time UNKNOWN Urine Opiates Screen Ur Oxycodone Screen Urine Methadone Screen Ur Propoxyphene Screen Ur Barbiturates Screen Ur Tricyclics Screen Ur Phencyclidine Scrn Ur Amphetamine Screen U Methamphetamines Scrn U Benzodiazepines Scrn [place] 0.48 Urine Cocaine Screen U Cannabinoids Screen 04/11/19 04/11/19 05:35 05:35 WBC RBC Hgb Hct MCV MCH MCHC RDW Plt Count MPV Neut # (Auto) Lymph # (Auto) [place] # (Auto) Eos # (Auto) Baso # (Auto) Absolute Nucleated RBC Nucleated RBC % Sodium Potassium Chloride Carbon Dioxide Anion Gap BUN Creatinine Estimated GFR (MDRD) Glucose Calcium Phosphorus Magnesium Total Bilirubin AST ALT Alkaline Phosphatase Total Protein Albumin Globulin Albumin/Globulin Ratio Lipase Urine Color YELLOW Urine Clarity CLEAR Urine pH 6.0 Ur Specific [place] >=1.030 H Urine Protein NEGATIVE Urine Glucose (UA) NEGATIVE Urine Ketones >=80 H Urine Occult Blood MODERATE H Urine Nitrite NEGATIVE Urine Bilirubin NEGATIVE Urine Urobilinogen 0.2 (NORMAL) Ur Leukocyte Esterase TRACE H Urine RBC 6-10 H Urine WBC 4-5 Ur Squamous Epith Cells MOD Squamous H Urine Bacteria Few Urine Mucus Few Strands Ur Microscopic Review INDICATED Urine Culture Comments NOT INDICATED Urine HCG, Qual NEGATIVE Last Dose Date Last Dose Time Urine Opiates Screen NEGATIVE Ur Oxycodone Screen NEGATIVE Urine Methadone Screen NEGATIVE Ur Propoxyphene Screen NEGATIVE Ur Barbiturates Screen NEGATIVE Ur Tricyclics Screen POSITIVE H Ur Phencyclidine Scrn NEGATIVE Ur Amphetamine Screen NEGATIVE U Methamphetamines Scrn NEGATIVE U Benzodiazepines Scrn NEGATIVE [place] Urine Cocaine Screen NEGATIVE U Cannabinoids Screen NEGATIVE - Rads (name of study) CT abd/pelvis Radiology: See rad report (Acute appendicitis) PD MEDICAL DECISION MAKING - ED course Complexity details: reviewed results, re-evaluated patient, d/w patient, d/w family ED course: Patient had an IV normal saline. She was given Zofran 4 mg IV after which she was able to eat 2 crackers and then complained that she was feeling nauseous again but had no vomiting here in the emergency department. She is medicated with Reglan IV and given lactated Ringer's after a liter of saline. Her white blood cell count was 18,000. CMP and lipase were normal. Kieler level was normal. Her urinalysis was pending but again on reevaluation she was tender in the right lower quadrant and still feeling nauseous. The decision was made to order CT abdomen pelvis. 0755: CT scan was read per the radiologist as showing early appendicitis with distention of the appendix and periappendiceal fat stranding. This was discussed with the patient and I talked with Dr. Fry the surgeon automotive sales professional. The patient will be given Zosyn IV and Dr Fry will evaluate patient in ED. Departure - Departure Disposition: ED Transfer to [facility] Clinical Impression: Appendicitis Qualifiers: Appendicitis type: acute appendicitis Acute appendicitis type: unspecified acute appendicitis type Qualified Code(s): K35.80 - Unspecified acute appendicitis Condition: Good Discharge Date/Time: 04/11/19 14:09
[2019-04-11] MEDS ORDERED: SODIUM CHLORIDE 0.9% 1,000 ML IV ONE (03:31)
[2019-04-11] MEDS ORDERED: ONDANSETRON 4 MG/2 ML VIAL IVP STA (03:31)
[2019-04-11 03:58] LABS: BASOPHILS # (AUTO) 0.1 10^3/uL (0.0-0.1); BASOPHILS % (AUTO) 0.4 %; EOSINOPHILS # (AUTO) 0.1 10^3/uL (0.0-0.7); EOSINOPHILS % (AUTO) 0.4 %; HGB - HEMOGLOBIN 11.7 g/dL (12.0-16.0); LYMPHOCYTES # (AUTO) 1.2 10^3/uL (1.5-3.5); LYMPHOCYTES % (AUTO) 6.1 %; MEAN CORPUSCULAR HEMOGLOBIN 25.5 pg (27.0-31.0); MEAN CORPUSCULAR HGB CONC 29.8 g/dL (32.0-36.0); MEAN CORPUSCULAR VOLUME 85.6 fL (81.0-99.0); MEAN PLATELET VOLUME 9.4 fL (7.9-10.8); MONOCYTES # (AUTO) 1.1 10^3/uL (0.0-1.0); MONOCYTES % (AUTO) 5.6 %; NEUTROPHILS # (AUTO) 16.3 10^3/uL (1.5-6.6); PLT - PLATELET COUNT 316 10^3/uL (130-450); RED BLOOD COUNT 4.59 10^6/uL (4.20-5.40); RED CELL DISTRIBUTION WIDTH 13.4 % (12.0-15.0); WHITE BLOOD COUNT 18.8 x10^3/uL (4.8-10.8)
[2019-04-11 04:12] LABS: ALBUMIN 4.7 g/dL (3.2-5.5); ALBUMIN/GLOBULIN RATIO 1.4 (1.0-2.2); BILIRUBIN,TOTAL 0.6 mg/dL (0.2-1.0); CALCIUM 9.2 mg/dL (8.5-10.3); CREATININE 0.8 mg/dL (0.4-1.0); MAGNESIUM 2.3 mg/dL (1.7-2.8); PHOSPHORUS 3.4 mg/dL (2.5-4.6)
[2019-04-11 04:30] LABS: LITHIUM 0.48 mmol/L
[2019-04-11] MEDS ORDERED: LACTATED RINGERS 1,000 ML IV STA (04:46)
[2019-04-11 05:45] LABS: BILIRUBIN,URINE NEGATIVE (NEGATIVE); GLUCOSE, URINE (UA) NEGATIVE (NEGATIVE); KETONES,URINE (UA) >=80 mg/dL (NEGATIVE); LEUKOCYTE ESTERASE, URINE TRACE (NEGATIVE); NITRITE,URINE NEGATIVE (NEGATIVE); OCCULT BLOOD,URINE MODERATE (NEGATIVE); PROTEIN,URINE NEGATIVE (NEGATIVE); UROBILINOGEN,URINE 0.2 (NORMAL) E.U./dL (NORMAL)
[2019-04-11 05:53] LABS: MUDS CUTOFF CONCENTRATIONS CUTOFF CONC BELOW:
[2019-04-11 05:54] LABS: CLARITY,URINE CLEAR (CLEAR); HCG UR QUAL NEGATIVE
[2019-04-11 06:00] LABS: BACTERIA,URINE Few /HPF (None Seen); MUCUS,URINE Few Strands; SQUAMOUS EPITHELIAL CELL,UR MOD Squamous (<= Few)
[2019-04-11 06:08] LABS: AMPHETAMINE SCREEN,URINE NEGATIVE (NEGATIVE); BENZODIAZEPINES SCREEN, URINE NEGATIVE (NEGATIVE); COCAINE SCREEN URINE NEGATIVE (NEGATIVE); METHADONE SCREEN, URINE NEGATIVE (NEGATIVE); METHAMPHETAMINES SCREEN, URINE NEGATIVE (NEGATIVE); OPIATE SCREEN, URINE NEGATIVE (NEGATIVE); OXYCODONE SCREEN, URINE NEGATIVE (NEGATIVE); PROPOXYPHENE SCREEN, URINE NEGATIVE (NEGATIVE); TRICYCLIC ANTIDEPRESSANT,URINE POSITIVE (NEGATIVE)
[2019-04-11] MEDS ORDERED: IOVERSOL 320 100 ML VIAL IVP ONE ×3 (06:18→07:07)
--- NOTE | 2019-04-11 07:46 | CT Report ---
Reason: abdominal pain Procedure Date: 04/11/2019 Accession Number: [id number] / [id number] Procedure: CT - Abdomen/Pelvis W CPT Code: Final Report FULL RESULT: EXAM: CT ABDOMEN AND PELVIS EXAM DATE: 04/11/2019 07:15 AM. CLINICAL HISTORY: Abdominal pain. COMPARISONS: None. TECHNIQUE: Routine helical CT imaging was performed through the abdomen and pelvis. IV contrast: 131 cc Optiray 320. Enteric contrast: No. Reconstructions: Coronal and sagittal. In accordance with CT protocol optimization, one or more of the following dose reduction techniques were utilized for this exam: automated exposure control, adjustment of mA and/or KV based on patient size, or use of iterative reconstructive technique. FINDINGS: Lung Bases: Unremarkable. Liver: Normal. No masses. Gallbladder/Bile Ducts: Unremarkable. Spleen: Normal. Pancreas: Normal. Adrenal Glands: Normal. Kidneys: Normal. No masses or hydronephrosis. Peritoneal Cavity/Bowel: No free fluid, free air or adenopathy. No masses. No dilated loops of small bowel or abnormal colonic stool burden. The retrocecal is borderline dilated measuring up to 8 mm in diameter (series 5 image 60, and series 7 image 21). There is minimal adjacent fat stranding. No adjacent free fluid or fluid collection. Pelvic Organs: There is a right ovarian cyst measuring 4.5 x 3.7 x 3.8 cm (series 5 image 75, and series 7 image 27). The left ovary is unremarkable. There is an IUD within the uterus. The uterus is otherwise unremarkable. The urinary bladder is normal. Vasculature: No aneurysms or other significant abnormality. Bones: No significant abnormality. Other: None. IMPRESSION: 1. Borderline dilated appendix with minimal adjacent fat stranding. Findings are suspicious for early acute appendicitis. No evidence of perforation or abscess formation. 2. Incidentally noted right ovarian cyst measuring up to 4.5 cm in diameter. Finding is almost certainly benign. No follow-up recommended. Management above is based on recommendations outlined in an ACR White Paper: Shreya Jansen Et al. Managing Incidental Findings on Abdominal and Pelvic CT and MRI, Part 1: White Paper of the ACR Incidental Findings Committee II on Adnexal Findings. Journal of the [place] [employer] 10, [id number] (2013). RADIA
[2019-04-11] MEDS ORDERED: PIPERACILLIN/TAZOBACTAM 3.375 GM in SODIUM CHLORIDE 0.9% MINIBAG 100 ML IV STA (07:55)
[2019-04-11] MEDS ORDERED: KETOROLAC 30 MG/ML VIAL IVP ONE (10:01)
[2019-04-11] MEDS ORDERED: PROPOFOL 200 MG/20 ML VIAL IVP ONE (10:01)
[2019-04-11] MEDS ORDERED: MIDAZOLAM 2 MG/2 ML VIAL IVP ONE (10:01)
[2019-04-11] MEDS ORDERED: DEXAMETHASONE 4 MG/ML VIAL IVP ONE (10:01)
[2019-04-11] MEDS ORDERED: NEOSTIGMINE 1 MG/1 ML 10 ML MDV IVP ONE (10:01)
[2019-04-11] MEDS ORDERED: fentaNYL 100 MCG/2 ML VIAL IVP ONE (10:01)
[2019-04-11] MEDS ORDERED: GLYCOPYRROLATE 1 MG/5 ML VIAL IVP ONE (10:01)
--- NOTE | 2019-04-11 10:27 | CONSULTATION NOTE ---
Referring Provider Name of Referring Provider:: Dr. Villegas Consult Date: 04/11/19 Chief Complaint - Chief Complaint Chief Complaint: abd pain History of Present Illness - Admitted From Admitted From:: ER - History Obtained From Records Reviewed: yes History obtained from: pt, records Exam Limitations: none - History of Present Illness HPI Comment/Other: 23 yo female with 1 week hx intermittent periumbilical and epigastric bloating and pressure type of pain which acutely worsened last night associated with N/V x 2, fever/chills, and loose stools x 2. The pain became constant and steady and radiated into the right side of her abdomen, exacerbated with activity. No prior similar sx, no one else in household with similar sx; no respiratory or urinary sx. No recent wt changes. No abn vaginal d/c. Having period currently.Pt is s/p laparoscopy this past summer for endometriosis. She thought she was having a reaction to her lithium and presented to the ER where evaluation revealed RLQ tenderness, WBC 18K, nl lfts, lipase, U/A. Neg preg test. [id number]. CT abd/pelvis showed an abnormally thickened appendix with periappendiceal fat stranding. Surgical consultation was requested. History - Past Medical History Cardiovascular: reports: None Respiratory: reports: None Neuro: reports: None Endocrine/Autoimmune: reports: None GI: reports: None HAND CANDLE DIPPER: reports: None : reports: None HEENT: reports: None Psych: reports: Anxiety, Post traumatic stress disorder, Other (insomnia) Musculoskeletal: reports: None Derm: reports: None MRSA Hx?: No - Past Surgical History /HAND CANDLE DIPPER: reports: Dilation and currettage, Other (laparoscopy for endometriosis) - Family & Social History Living arrangement: At home Living Situation: With spouse/s.o. - Substance History Use: Uses substance without health or social issues: Tobacco Abuse Issues: Other (hx of IV narcotic drug abuse; abstinent x 4 yrs) Tobacco Details: E-Cigarettes - POLST Patient has POLST: No Meds/Allgy - Home Medications Home Medications: Ambulatory Orders Medication Instructions Recorded Confirmed Naproxen [Naprosyn] 250 mg PO Q8H PRN 01/06/19 01/16/19 Quetiapine Fumarate [Seroquel] 50 mg PO 01/06/19 [place] 300 mg PO DAILY 02/11/19 02/11/19 - Allergies Allergies/Adverse Reactions: Allergies Allergy/AdvReac Type Severity Reaction Status Date / Time olive oil Allergy Hives Verified 04/11/19 03:12 Review of Systems - Constitutional Constitutional: reports: Fever, Chills, Diaphoresis. denies: Weight gain, Weight loss - Gastrointestinal Gastrointestinal: reports: Abdominal pain, Change in bowel habits, Nausea, Vomiting, Bloating. denies: Black stools, Bloody stools, Coffee grounds emesis, Reflux/heartburn - Genitourinary Genitourinary: denies: Dysuria - Hematologic/Lymphatic Hematologic/Lymphatic: denies: Blood clots, Bleeding tendencies - All Other Systems All Other Systems: reports: Reviewed and negative (or covered in HPI/PMH) Exam - Vital Signs Reviewed Vital Signs: Yes Vital Signs: Vital Signs x48h Temp Pulse Resp BP Pulse Ox 04/11/19 09:54 36.7 C 75 17 101/54 L 100 04/11/19 07:59 76 16 112/60 100 04/11/19 06:05 75 17 115/66 98 04/11/19 04:12 72 16 110/63 100 04/11/19 03:00 36.8 C 73 16 116/69 100 - Physical Exam General Appearance: positive: Alert, Moderate distress Eyes Bilateral: positive: Normal inspection, Conjunctivae nml, No scleral icterus ENT: positive: ENT inspection nml, Pharynx nml, No signs of dehydration Neck: positive: Nml inspection, Thyroid nml, No JVD, Trachea midline. negative: Lymphadenopathy (R), Lymphadenopathy (L) Respiratory: positive: Chest non-tender, No respiratory distress, Breath sounds nml Cardiovascular: positive: Regular rate & rhythm, No murmur, No gallop Abdomen: positive: No organomegaly, No distention, Tenderness (RLQ tenderness/guarding/rebound with + Rovsing's and psoas signs; neg obturator sign), Guarding, Rebound, Abnml bowel sounds (hypoactive). negative: Hepatomegaly, Splenomegaly, Mass Skin: positive: Color nml, No rash, Warm, Dry. negative: Cyanosis Extremities: positive: Non-tender, Full ROM, Nml appearance, No pedal edema. negative: Calf tenderness Neurologic/Psychiatric: positive: Oriented x3 Conclusion and Plan - Lab Results Laboratory Results 04/11/19 05:35: Urine Opiates Screen NEGATIVE, Ur Oxycodone Screen NEGATIVE, Urine Methadone Screen NEGATIVE, Ur Propoxyphene Screen NEGATIVE, Ur Barbiturates Screen NEGATIVE, Ur Tricyclics Screen POSITIVE H, Ur Phencyclidine Scrn NEGATIVE, Ur Amphetamine Screen NEGATIVE, U Methamphetamines Scrn NEGATIVE, U Benzodiazepines Scrn NEGATIVE, Urine Cocaine Screen NEGATIVE, U Cannabinoids Screen NEGATIVE 04/11/19 05:35: Urine Color YELLOW, Urine Clarity CLEAR, Urine pH 6.0, Ur Specific [place] >=1.030 H, Urine Protein NEGATIVE, Urine Glucose (UA) NEGATIVE, Urine Ketones >=80 H, Urine Occult Blood MODERATE H, Urine Nitrite NEGATIVE, Urine Bilirubin NEGATIVE, Urine Urobilinogen 0.2 (NORMAL), Ur Leukocyte Esterase TRACE H, Urine RBC 6-10 H, Urine WBC 4-5, Ur Squamous Epith Cells MOD Squamous H, Urine Bacteria Few, Urine Mucus Few Strands, Ur Microscopic Review INDICATED, Urine Culture Comments NOT INDICATED, Urine HCG, Qual NEGATIVE 04/11/19 03:40: Last Dose Date UNKNOWN, Last Dose Time UNKNOWN, [place] 0.48 04/11/19 03:40: Sodium 139, Potassium 3.9, Chloride 105, Carbon Dioxide 26, Anion Gap 8.0, BUN 18, Creatinine 0.8, Estimated GFR (MDRD) 91, Glucose 106 H, Calcium 9.2, Phosphorus 3.4, Magnesium 2.3, Total Bilirubin 0.6, AST 20, ALT 13, Alkaline Phosphatase 54, Total Protein 8.0, Albumin 4.7, Globulin 3.3, Albumin/Globulin Ratio 1.4, Lipase 37 04/11/19 03:40: WBC 18.8 H, RBC 4.59, Hgb 11.7 L, Hct 39.3, MCV 85.6, MCH 25.5 L, MCHC 29.8 L, RDW 13.4, Plt Count 316, MPV 9.4, Neut # (Auto) 16.3 H, Lymph # (Auto) 1.2 L, [place] # (Auto) 1.1 H, Eos # (Auto) 0.1, Baso # (Auto) 0.1, Absolute Nucleated RBC 0.00, Nucleated RBC % 0.0 - Diagnostic Imaging Results Diagnostic Imaging Results: positive: Final report reviewed, Read independently Diagnostic Imaging Results Comments: See HPI - Diagnosis Diagnosis: Acute abdomen with findings c/w acute appendicitis with no evidence of complicated disease at present. - Plan Plan: Lap appy for definitive surgical therapy. PAR conference was held in detail and consent obtained. The procedure will be performed later today as soon as it can be arranged. Thanks,
--- NOTE | 2019-04-11 13:36 | ANESTHESIA ---
Pre-Anesthesia VS, & Labs - Diagnosis Diagnosis Acute abdomen with findings c/w acute appendicitis with no evidence of complicated disease at present. - Procedure Laparoscopic appendectomy Vital Signs: Temp Pulse Resp BP Pulse Ox 36.7 C 69 16 118/62 100 04/11/19 09:54 04/11/19 12:16 04/11/19 12:16 04/11/19 12:16 04/11/19 12:16 Height 5 ft 7 in Weight (kg) 66.224 kg Body Mass Index 22.8 - NPO >8 hours - Is Patient ?: No - Lab Results Current Lab Results: Laboratory Tests 04/11/19 05:35: Urine Opiates Screen NEGATIVE, Ur Oxycodone Screen NEGATIVE, Urine Methadone Screen NEGATIVE, Ur Propoxyphene Screen NEGATIVE, Ur Barbiturates Screen NEGATIVE, Ur Tricyclics Screen POSITIVE H, Ur Phencyclidine Scrn NEGATIVE, Ur Amphetamine Screen NEGATIVE, U Methamphetamines Scrn NEGATIVE, U Benzodiazepines Scrn NEGATIVE, Urine Cocaine Screen NEGATIVE, U Cannabinoids Screen NEGATIVE 04/11/19 03:40: Last Dose Date UNKNOWN, Last Dose Time UNKNOWN, [place] 0.48 04/11/19 03:40: Sodium 139, Potassium 3.9, Chloride 105, Carbon Dioxide 26, Anion Gap 8.0, BUN 18, Creatinine 0.8, Estimated GFR (MDRD) 91, Glucose 106 H, Calcium 9.2, Phosphorus 3.4, Magnesium 2.3, Total Bilirubin 0.6, AST 20, ALT 13, Alkaline Phosphatase 54, Total Protein 8.0, Albumin 4.7, Globulin 3.3, Albumin /Globulin Ratio 1.4, Lipase 37 04/11/19 03:40: WBC 18.8 H, RBC 4.59, Hgb 11.7 L, Hct 39.3, MCV 85.6, MCH 25.5 L , MCHC 29.8 L, RDW 13.4, Plt Count 316, MPV 9.4, Neut # (Auto) 16.3 H, Lymph # (Auto) 1.2 L, [place] # (Auto) 1.1 H, Eos # (Auto) 0.1, Baso # (Auto) 0.1, Absolute Nucleated RBC 0.00, Nucleated RBC % 0.0 Lab results reviewed: Yes Fish Bones: 04/11/19 03:40 04/11/19 03:40 Home Medications and Allergies Naproxen [Naprosyn] 250 mg PO Q8H PRN 01/06/19 Quetiapine Fumarate [Seroquel] 50 mg PO 01/06/19 [place] 300 mg PO DAILY 02/11/19 Allergies/Adverse Reactions: Allergies Allergy/AdvReac Type Severity Reaction Status Date / Time olive oil Allergy Hives Verified 04/11/19 03:12 Anes History & Medical History - Anesthetic History Anesthesia Complications: reports: Post-Operative Nausea/Vomiting Family history of Anesthesia Complications: Denies Family history of Malignant Hyperthermia: Denies - Medical History Cardiovascular: reports: None Pulmonary: reports: None Gastrointestinal: reports: None Urinary: reports: None Neuro: reports: None Musculoskeletal: reports: None Endocrine/Autoimmune: reports: None Blood Disorders: reports: Anemia Skin: reports: None Smoking Status: Never smoker Psychosocial: reports: No issues indicated, Substance abuse (remote hx of hydrocone abuse) - Surgical History Gynecologic: Dilation and currettage, Other (laparoscopy for endometriosis) Exam General: Alert, Oriented x3, Cooperative Dental: WNL (nasal piercing, removed) Mouth Openin Fingerbreadth Neck Mobility: Normal Mallampati classification: II Thyromental Distance: 4-6 cm Respiratory: Lungs clear, Normal breath sounds Cardiovascular: Regular rate Mental/Cognitive Status: Alert/Oriented X3, Normal for patient Cognitive Status: Within normal limits Plan Anesthesia Type: General Consent for Procedure(s) Verified and Reviewed: Yes Code Status: Attempt Resuscitation ASA classification: 1-Healthy patient Is this case an emergency?: No
[2019-04-11] MEDS ORDERED: BUPIVACAINE 0.5% PF 30 ML VIAL ONE (13:51)
[2019-04-11] MEDS ORDERED: ceFAZolin 1 GM VIAL ONE (13:51)
[2019-04-11] MEDS ORDERED: BUPIVACAINE 0.5% PF 30 ML VIAL INFIL ONE ×2 (14:52)
[2019-04-11] MEDS ORDERED: LACTATED RINGERS 1,000 ML IV ONE (14:53)
[2019-04-11] MEDS ORDERED: IBUPROFEN 600 MG TABLET PO PRN (15:11)
[2019-04-11] MEDS ORDERED: ACETAMINOPHEN 325 MG TABLET PO PRN (15:11)
[2019-04-11] MEDS ORDERED: oxyCODONE 5 MG TABLET PO PRN (15:11)
[2019-04-11] MEDS ORDERED: ONDANSETRON 4 MG/2 ML VIAL IVP PRN (15:11)
--- NOTE | 2019-04-11 15:22 | OPERATIVE REPORT ---
Operative Report - General Procedure Date: 04/11/19 Planned Procedure: Lap appendectomy Pre-Op Diagnosis: Acute appendicitis Procedure Performed: Lap appendectomy Post Op Diagnosis: Same - Procedure Note Primary Surgeon: Sharif Fry MD [facility] Anesthesia Provider: Emily Marcos CRNA Anesthesia Technique: General ET tube Pathology: appendix IV Fluids (mL): 600 Estimated Blood Loss (mL): 5 Findings: acutely inflamed but not perforated or gangrenous appendix Complications: none
[2019-04-11] MEDS ORDERED: HYDROmorphone 0.5 MG/0.5 ML SYRINGE ONE ×2 (15:54→16:15)
--- NOTE | 2019-04-11 16:13 | OPERATIVE REPORT ---
DATE OF SERVICE: 04/11/2019 Physician: Sharif Fry MD PREOPERATIVE DIAGNOSIS: Acute appendicitis. POSTOPERATIVE DIAGNOSIS: Acute appendicitis. PROCEDURE: Laparoscopic appendectomy. ANESTHESIA: General endotracheal by Emily Marcos CRNA. SURGEON: Sharif Fry MD ESTIMATED BLOOD LOSS: 5 mL COMPLICATIONS: None. FINDINGS: Laparoscopy revealed an acutely inflamed, but non-perforated and non-gangrenous appendix. The cecal base, visualized portions of the colon, small bowel, uterus, tubes and ovaries, liver, sto mach and gallbladder were within normal limits. INDICATIONS: The patient is a 23-year-old woman with a history of periumbilical pain, which localize d to the right side of the abdomen, associated with right lower quadrant peritoneal signs, leukocytos is, and a CT scan showing an abnormally thickened appendix consistent with acute appendicitis. She w as advised to undergo laparoscopic appendectomy for definitive surgical treatment. TECHNIQUE: After informed consent and preoperative therapeutic administration of Zosyn, patient was taken to the operating room where she was placed under general endotracheal anesthesia. Preoperative preparation also included application of sequential calf compression boots. Her abdomen was prepare d with ChloraPrep solution and draped in the usual sterile fashion. A transverse infraumbilical inci brooklynn was made 2 cm in length and carried down through the layers of abdominal wall until the peritone um was identified and entered sharply. A 10 mm Izaiah cannula was inserted. Pneumoperitoneum was ac hieved with carbon dioxide. A 5-mm 30-degree Sabrina telescope was inserted. Laparoscopy was jennifer d out with findings noted above. Two additional 5 mm ports were placed in lower midline and left low er quadrant. Instruments were passed. The appendix was exposed, its mesentery ligated and divided w herb LigaSure. The appendix was then ligated at its junction with the cecal base using the Ethicon pr oximate linear 45 mm stapler with a vascular load. This provided excellent hemostasis. The appendix was placed in an organ retrieval bag, extracted and sent for pathologic evaluation. After hemostasi s was ensured, the right lower quadrant was irrigated with saline solution, following which instrumen ts and cannulas were removed under direct vision. Pneumoperitoneum was allowed to escape, and the in cisions were closed in layers using continuous 0 Vicryl to reapproximate the midline fascia at the um bilicus, followed by 4-0 Monocryl subcuticular skin closure at all the port sites, followed by Dermab ond. Then, 20 mL 0.5% Marcaine with epinephrine was infiltrated into the incisions assisting postope rative analgesia. Anesthesia was terminated and patient was transferred to the recovery room in sati sfactory condition. Instrument counts were correct x2. No drains were used. TD: 04/11/2019 15:27
[2019-04-11] MEDS ORDERED: oxyCODONE 5 MG TABLET ONE (16:47)
[2019-04-11 18:06] VITALS: BP 111/70
== END 2019-04-11 10:01 | disposition home or self-care (01) ==
LOC: EDUNIT# → ED 02:57 → SDS 10:00
PROVIDERS: ATTEND Internal Medicine Gastroenterology
PROC: 0DTJ4ZZ Resection of Appendix, Percutaneous Endoscopic Approach (ICD-10-PCS; principal; 2019-04-11 13:30)
DX: K35.80 Unspecified acute appendicitis (principal); F31.9 Bipolar disorder, unspecified; F20.9 Schizophrenia, unspecified; F41.9 Anxiety disorder, unspecified; F43.10 Post-traumatic stress disorder, unspecified; N80.9 Endometriosis, unspecified; Z79.899 Other long term (current) drug therapy; Z87.898 Personal history of other specified conditions; Z72.0 Tobacco use
CPT/HCPCS: 36415; 44970; 74177; 80053; 80178; 81001; 81025; 83690; 83735; 84100; 85025; 96361; 96374; 96375; 99284; 99285; A9270; J1170; J7120; Q9967; 80306; 81003; 87086

== ENCOUNTER 2019-07-29 01:59 | Outpatient (CLI) | payer OTHER | END 2019-07-29 02:00 | disposition short-term general hospital (02) | LOC: EMS 01:59 | PROVIDERS: ATTEND Surgery | DX: T50.992A Poisoning by other drugs, medicaments and biological substances, intentional self-harm, initial encounter (principal); R53.83 Other fatigue; R53.1 Weakness; R11.0 Nausea; R25.1 Tremor, unspecified | CPT/HCPCS: A0425; A0427 ==